=== PATIENT | female | born 1975 | race Caucasian/White ===

== ENCOUNTER 2023-04-18 08:45 | Outpatient (RCR) | payer BC, SELFPAY ==
--- NOTE | 2023-04-02 09:26 | PTOPEVAL1 ---
Assessment and note entered by Jacinda Prado, PT Evaluation Information Assessment Status Evaluation Diagnosis dizziness and giddiness Therapy diagnosis BPPV right ear, unsteadiness on feet Onset 03/28/23 Subjective Information Pt reports has had a lot of issues with Vertigo after having Covid in 2019. Reports if lays on back or even with Yoga now will have head spinning and nausea, putting head upside down for head spinning. Flipping with turning during massage. States this past was more severe, was nauseas and threw up this time. Reported Pain Level Pain Score 0: Self Report Assessment PT Clinical Summary Pt presents with complaints of dizziness that have persisted on and off for multiple years with a recent flare up less than a week ago which was the most intense she had had in a long time. Evaluation today shows good static balance with increased deficits with eyes closed and small base of support suggestive of inner ear impairment. Also demos (+) testing with Rosalina-Hallpike and Roll testing R>L even though both show symptoms and pt reports dizziness. Evaluation suggestive of Benign Paroxismal Positional Vertigo of the right ear. Pt will benefit from physical therapy to address balance and symptoms to improve function with less discomfort. Plan of Care Interventions Neuro Re-education,Other Other Interventions [employer] PT Services Indicated Yes Treatment Frequency and 2x weekly x 4 weeks Duration These treatments will address the objective and functional deficits as defined above. The patient will be advanced safely and appropriately in order for the patient to progress towards his/her prior level of function. Additional exercises will be introduced and as well as a comprehensive home exercise program upon discharge, if needed, ?to ensure carryover of functional gains achieved in the clinic. This treatment plan has been reviewed and agreement upon by the patient.
--- NOTE | 2023-04-02 09:26 | OPREHPOC ---
Outpatient Therapy Plan of Care This is a Multidisciplinary Plan of Care that may contain components documented by all disciplines (PT, OT, and ST.) PT Problem 1 PT Problem #1 Knowledge Deficit PT Goal 1 Goal Pt will verbalize understanding of diagnosis and prognosis Target Visit 8 PT Goal 2 Goal Pt will be independent in HEP Target Visit 8 PT Problem 2 PT Problem #2 Impaired Balance PT Goal 1 Goal Pt will demo ability to death clearance coordinator Tandem position R /L forward each for 15 seconds with eyes closed Target Visit 8 PT Problem 3 PT Problem #3 Impaired Vestibular Syste PT Goal 1 Goal Pt will report resolution of symptoms with activities Target Visit 8
--- NOTE | 2023-04-18 09:19 | PTOPPROG ---
Assessment and note entered by Jacinda Prado, PT Assessment Status Progress Report Diagnosis dizziness and giddiness Onset 03/28/23 Subjective Information Pt reports 90% improvement overall. States doesn't feel icky , took some Sudafed (on day 3) and this helped. States ears are still popping , can be just sitting there and will pop both equally and not painful. Assessment PT Clinical Summary Pt reports 90% improvement overall in her symptoms . No longer has spinning or icky feelings. Last 10% of issue is her ears popping . She did not improve her eyes closed small base of support scores for balance however was provided home program for this. Pt cont to loose balance to left more so than right, thus plan of care is being left open for 30 days to allow for return to therapy if vertigo returns. Otherwise plan will be discharged if pt has no need of therapy services at that time. Plan of Care Interventions Neuro Re-education,Other Other Interventions [employer] PT Services Indicated Yes Treatment Frequency and 4 visits PRN within 30 days Duration These treatments will address the objective and functional deficits as defined above. The patient will be advanced safely and appropriately in order for the patient to progress towards his/her prior level of function. Additional exercises will be introduced and as well as a comprehensive home exercise program upon discharge, if needed, ?to ensure carryover of functional gains achieved in the clinic. This treatment plan has been reviewed and agreement upon by the patient.
--- NOTE | 2023-05-17 14:21 | PTOPDC ---
Assessment and note entered by Jacinda Prado, PT Assessment Status Discharge - Pt Not Present Diagnosis dizziness and giddiness Onset 03/28/23 Assessment PT Clinical Summary Spoke with patient over the phone who states she is doing well. Has no concerns or needs, thus will be discharged from her therapy plan of care. Plan of Care
--- NOTE | 2023-05-17 14:23 | PTOPDC ---
Assessment and note entered by Jacinda Prado, PT Evaluation Information Assessment Status Discharge - Pt Not Presen Diagnosis dizziness and giddiness Onset 03/28/23 Assessment PT Clinical Summary Spoke with patient over the phone who states she is doing well. Has no concerns or needs, thus will be discharged from her therapy plan of care.
== END 2023-05-17 14:51 | disposition home or self-care (01) ==
LOC: ANHHIPT 08:45
PROVIDERS: PCP Family Medicine; Visit Provider Family Medicine
DX: H81.11 Benign paroxysmal vertigo, right ear (principal)
CPT/HCPCS: 95992; 97110; 97112; 97161